=== PATIENT | male | born 1995 | race Caucasian/White ===

== ENCOUNTER 2020-07-04 14:45 | Emergency (ER) | payer MEDICAID, SELFPAY ==
[2020-07-04 14:47] VITALS: BP 109/70; PULSE 77; RESP 18; TEMP 36.9; O2SAT 100; BMI 27.3
--- NOTE | 2020-07-04 15:02 | CT_ITS ---
STUDY: CT ABDOMEN AND PELVIS WITH CONTRAST REASON FOR EXAM: Male, 25 years old. RLQ ABD PAIN AND NAUSEA STARTED TODAY. RADIATION DOSAGE (If Supplied By Facility): CTDIvol = ( 9.04 ) mGy, DLP = ( 563.11 ) mGycm TECHNIQUE: Transaxial images were obtained from the dome of the diaphragm to the symphysis pubis without oral contrast. Oral and amp;amp; IV Gastrografin and amp;amp; 100mL Isovue-300 was administered. Sagittal and coronal images were reconstructed. Individualized dose optimization techniques were used for this CT. COMPARISON: None. FINDINGS: The visualized lung bases are unremarkable. The visualized portions of the heart are within normal limits. Normal liver. Normal gallbladder and extrahepatic biliary system. Normal spleen. Normal pancreas. Normal bilateral adrenal glands. Normal right kidney. Normal left kidney. Normal visualized stomach. Normal small intestine. Increased stool throughout the colon. Oral contrast noted in the small bowel. Appendix is normal. Normal abdominal aorta. Normal inferior vena cava. Normal retroperitoneum. Normal urinary bladder. Normal abdominal wall. Normal osseous structures. CT/Abdomen/Pelvis WITH Contrast IMPRESSION: Increased stool. No acute disease. Electronically Signed: Chaz Gilliland MD at 17:17 EST , Service support ,
--- NOTE | 2020-07-04 15:03 | ED.VISSUMM ---
- ER Visit Summary Date of Service: 07/04/20 Chief Complaint: Abdominal pain History of Present Illness: The patient is a 25 M presenting with right lower quadrant abdominal pain. Patient states this started this morning. He has nausea with no vomiting. Denies diarrhea or constipation. Denies urinary complaints. Denies fever. He states he saw his primary care physician on Saturday and had an outpatient ultrasound ordered to check for hernia. He states pain is now in the right lower quadrant as opposed to the left lower quadrant when he saw his PCP. Denies other complaints. Physical Examination: Vitals are stable. Patient is afebrile. Alert no acute distress. HEENT exam is unremarkable. Neck is supple. Lungs are clear and equal bilaterally. Heart is regular rate and rhythm. Abdomen is soft right lower quadrant tenderness with no guarding or rebound Extremities are unremarkable. Skin is warm and dry. No focal neurologic deficit. Remainder of exam is unremarkable. Emergency Department Course and Treatment: Patient was given Zofran IV. CBC, chemistries unremarkable. Urinalysis unremarkable. CT abdomen pelvis is pending at this time and will be checked out to the oncoming physician. Disposition: Pending Impression: Abdominal pain This note was generated with [employer] dictation software. It may contain incorrect words, spelling, and punctuation that were not noted in review of the chart prior to signing ED Disposition - Plan for ED Patient: Referrals: Ivan Richard MD [NON-STAFF] -
[2020-07-04] MEDS: Ondansetron 4 MG/2 ML Vial IV (15:16)
[2020-07-04 15:29] LABS: Mucous, Urine 0 SEEN /hpf (<or=2+); Red Blood Cells-Urine 0 SEEN /hpf (0-5); Squamous Epithelial Cells - UA 0 SEEN /hpf (0-5); White Blood Cells 0 SEEN /hpf (0-5)
[2020-07-04 15:41] LABS: Anion Gap 7 (5-15); BUN 22 mg/dL (7-18); BUN/Creat Ratio 18.8 RATIO (10-20); Calcium,Total 9.2 mg/dL (8.5-10.1); Chloride 105 mmol/L (98-107); Creatinine, Serum 1.17 mg/dL (0.70-1.30); EST Glomerular Filtration Rate 79 mL/min (>60); Est Glom Filt Rate - Afr Amer 96 mL/min (>60); Estimated Creatinine Clearance 91.75 ml/min; Glucose 91 mg/dL (74-106); Potassium 3.5 mmol/L (3.5-5.1); Sodium Level 142 mmol/L (136-145)
[2020-07-04 15:42] LABS: Color, Urine Yellow (Yellow); Glucose, Dipstick Normal (Normal); Ketone-Dipstick Negative (Negative); Leukocyte Esterase-Dipstick Negative /ul (Negative); Nitrite-Dipstick Negative (Negative); Occult Blood-Urine Negative /ul (Negative); Protein-Dipstick Negative (Negative); Urine Bilirubin Dipstick Negative (Negative); Urine Clarity Clear (Clear); Urine Urobilinogen Normal (Normal)
[2020-07-04 15:49] LABS: Hematocrit 42.7 % (40-54); Hemoglobin 14.6 g/dL (13.0-16.5); Mean Corp Hgb Conc 34.2 g/dL (32-36); Mean Corpuscular Hgb 30.3 pg (27.0-32.0); Mean Corpuscular Volume 88.6 fL (80-94); Mean Platelet Vol. 8.9 fl (6.2-12.0); NRBC Flagged by Analyzer 0 % (0-5); Platelet Count 270 K/mm3 (150-450); RBC Distribution Width CV 11.6 % (11.6-14.6); RBC Distribution Width SD 37.4 fl (35.1-43.9); Red Blood Count 4.82 M/mm3 (4.6-6.2); White Blood Count 7.3 K/mm3 (4.4-11.0)
[2020-07-04 15:54] LABS: Absolute Lymphocyte Count 1.97 X10^3/uL (0.83-4.51); Absolute Neutrophil Count 4.6 X10^3/uL (2.0-7.7); Basophil# 0.04 X10^3/uL; Basophil% 0.6 % (0-1); Eosinophil# 0.11 X10^3/uL; Eosinophils% 1.5 % (0-5); Lymphocyte # 1.97 X10^3/ul (4.0); Lymphocyte % 27.2 % (19-41); Monocyte% 6.9 % (0-10); Neutrophil # 4.59 X10^3/uL (2.7-7.7); Neutrophil % 63.4 % (47-70)
[2020-07-04 16:06] LABS: Bacteria 1+ /hpf (None Seen)
--- NOTE | 2020-07-04 16:27 | ED.DEP ---
ED Disposition - Plan for ED Patient: Instructions: ED Unknown Causes of Abdominal Pain Male Referrals: Ivan Richard MD [NON-STAFF] -
[2020-07-04 16:51] VITALS: BP 125/72; PULSE 77; RESP 14; O2SAT 98
--- NOTE | 2020-07-04 17:23 | ED.DEP ---
ED Disposition - Plan for ED Patient: Instructions: ED Unknown Causes of Abdominal Pain Male, ED Constipation Prescriptions: Polyethylene Glycol 3350 [Miralax] 17 gm PO DAILY #10 packet Prescription Printed Referrals: Ivan Richard MD [NON-STAFF] -
[2020-07-04 17:45] VITALS: BP 107/72; PULSE 75; RESP 18; O2SAT 98
--- NOTE | 2020-07-04 17:46 | ED.RN ---
PT EDUCATED ON WRITTEN AND VERBAL DISCHARGE INSTRUCTIONS AND HOME GOING INSTRUCTIONS. PT VERBALIZES UNDERSTANDING AND DENIES ANY FURTHER QUESTIONS. IV D/C AND COVERED WITH X2 GAUZE AND PAPER TAPE. PT DRESSES SELF AND AMBULATES OUT OF DEPT ALONE.
== END 2020-07-04 17:47 | disposition home or self-care (01) ==
LOC: ED 15:11
PROVIDERS: Emergency Provider Emergency Medicine; PCP Family Medicine
DX: R10.31 Right lower quadrant pain (principal); R11.0 Nausea
CPT/HCPCS: 74177; 80048; 81001; 85025; 96374; 99283; Q9967; A4216; J2405

== ENCOUNTER 2020-08-29 12:26 | Emergency (ER) | payer MEDICAID, SELFPAY ==
[2020-08-29 12:27] VITALS: BP 114/79; PULSE 63; RESP 15; TEMP 36.2; O2SAT 100; BMI 26.6
--- NOTE | 2020-08-29 12:47 | EKG12_ITS ---
Test Reason : CP Blood Pressure : / mmHG Vent. Rate : 068 BPM Atrial Rate : 068 BPM P-R Int : 162 ms QRS Dur : 096 ms QT Int : 406 ms P-R-T Axes : 062 062 039 degrees QTc Int : 431 ms Normal sinus rhythm with sinus arrhythmia Normal ECG Confirmed by ALEX DEGROOT, SRIKANTH ([id number]), editor city KENDAL KLEIN ([id number]) on 09/05/2020 9:12:15 AM Referred By: PAUL Confirmed By:EVAN JOHNSON MD
--- NOTE | 2020-08-29 13:04 | NURSING ---
NO OLD EKGS
--- NOTE | 2020-08-29 13:11 | RAD_ITS ---
STUDY: X-RAY CHEST REASON FOR EXAM: Male, 25 years old. Pt. states he has had CP on and off for 2 1/2 months, getting worse TECHNIQUE: Frontal and lateral views of the chest. COMPARISON: None. FINDINGS: The lungs are clear and expanded. There is no demonstrated pleural abnormality. Normal size heart. Normal mediastinum and filipe. Normal visualized pulmonary arteries. Normal visualized aortic arch and descending thoracic aorta. Normal visualized thoracic spine. Normal visualized ribs, clavicles, and shoulders. There is no demonstrated abnormality of the visualized soft tissue structures of the upper abdomen. RAD/Chest PA and Lateral IMPRESSION: Normal x-ray examination of the chest. Electronically Signed: Shun Diop, at 13:39 EST Tel , Service support ,
[2020-08-29 13:12] LABS: Absolute Lymphocyte Count 1.61 X10^3/uL (0.83-4.51); Absolute Neutrophil Count 3.5 X10^3/uL (2.0-7.7); Basophil# 0.03 X10^3/uL; Basophil% 0.5 % (0-1); Eosinophil# 0.07 X10^3/uL; Eosinophils% 1.2 % (0-5); Hematocrit 40.7 % (40-54); Hemoglobin 13.7 g/dL (13.0-16.5); Lymphocyte # 1.61 X10^3/ul (4.0); Lymphocyte % 28.5 % (19-41); Mean Corp Hgb Conc 33.7 g/dL (32-36); Mean Corpuscular Hgb 29.6 pg (27.0-32.0); Mean Corpuscular Volume 87.9 fL (80-94); Mean Platelet Vol. 8.5 fl (6.2-12.0); Monocyte# 0.46 X10^3/uL; Monocyte% 8.1 % (0-10); NRBC Flagged by Analyzer 0 % (0-5); Neutrophil # 3.46 X10^3/uL (2.7-7.7); Neutrophil % 61.3 % (47-70); Platelet Count 244 K/mm3 (150-450); RBC Distribution Width CV 11.9 % (11.6-14.6); Red Blood Count 4.63 M/mm3 (4.6-6.2); White Blood Count 5.7 K/mm3 (4.4-11.0)
--- NOTE | 2020-08-29 13:15 | ED.VIS.GEN ---
History of Present Illness Chief Complaint: Chest Pain Informant: Patient Onset: Month(s) Timing: Intermittent Current Severity: - - Resolved Maximum Severity: Mild Narrative: Patient presents secondary to upper chest pain. He states for the past 2-1/2 months he has had intermittent episodes of upper chest pain associated with lightheadedness and nausea. He states he will occasionally have some difficulty swallowing during these episodes. He states episodes will typically last at least 30 minutes and will spontaneously resolve. This morning the pain started going into the left upper chest which prompted him to call his doctor and they referred him to the emergency room. Past Medical History - Allergies and Home Meds Allergies/Adverse Reactions: Allergies No Known Allergies Allergy (Verified 08/29/20 12:26) Primary Care Physician: Berto Kelly MD [Primary Care Provider] - Prior records reviewed: Yes Smoking Status: Unknown if ever smoked Review of Systems General: Denies: Chills, Fever Eyes: Denies: Visual changes - bilaterally ENT: Denies: Bilateral ear pain Cardiovascular: Reports: Chest pain Respiratory: Denies: Dyspnea, Cough Gastrointestinal: Denies: Abdominal pain, Vomiting, Diarrhea Genitourinary: Denies: Dysuria Musculoskeletal: Denies: Swelling, Extremity Pain Skin: Denies: Rash Neurological: Denies: Headache Hematologic: Denies: Easy bruising, Easy bleeding Allergy: Denies: Uticaria Physical Exam Vital Signs/Narrative: Vital Signs Temp Pulse Resp BP Pulse Ox 08/29/20 12:27 97.2 F L 63 15 114/79 100 Inital Vital Signs reviewed: Yes General: Well nourished, Well developed Head: Normocephalic ENT: Moist mucous membranes Neck: Supple Cardiovascular: Regular rate, Regular rhythm Respiratory: No distress, CTA bilaterally, Chest nontender Abdomen: Soft, Nontender Extremities: Nontender Skin: Normal color Neurological: Alert, Oriented x3 Psychological: Normal affect Diagnostic/Tx/Re-eval Chest X-Ray - ED: 2 View, Read by ED Physician, Normal, Heart, Lungs, Mediastinum - EKG Initial EKG Interpretation: Sinus Rhythm - Sinus at 68 with no acute ischemia. - Medical Decision Making Patient was observed on equipment monitor phototypesetting throughout his ED stay. No significant arrhythmias noted. 2 view chest x-ray per my review reveals no acute findings. Radiologist interpretation is also reviewed. Blood work is unremarkable including negative D-dimer, troponin, and TSH. Test results are discussed with the patient. Patient is concerned that this may be secondary to anxiety. He has had multiple deaths in his family over the last 3 months that he has been taking hard. He will be given a short course of Ativan to see if that helps the episodes. He will follow-up with his PCP. ED Disposition - Plan for ED Patient: Disposition: Home or Assisted Living Diagnosis: Atypical chest pain, Anxiety Instructions: ED Chest Pain, Noncardiac, ED Anxiety Reaction Prescriptions: Lorazepam [Ativan] 0.5 mg PO BID PRN PRN #10 tablet PRN Reason: Anxiety Transmission Status: Received by [facility]/pharmacy #[id number] Referrals: Berto Kelly MD [Primary Care Provider] - 1-2 Weeks
[2020-08-29 13:25] LABS: D-Dimer Quantitative (DVT/PE) <= 0.27 FEU/ug/m (0.27-0.49)
[2020-08-29 13:36] LABS: Anion Gap 4 (5-15); BUN 18 mg/dL (7-18); BUN/Creat Ratio 16.8 RATIO (10-20); Calcium,Total 9.3 mg/dL (8.5-10.1); Chloride 108 mmol/L (98-107); Creatinine, Serum 1.07 mg/dL (0.70-1.30); EST Glomerular Filtration Rate 88 mL/min (>60); Est Glom Filt Rate - Afr Amer 106 mL/min (>60); Estimated Creatinine Clearance 100.33 ml/min; Glucose 101 mg/dL (74-106); Potassium 3.6 mmol/L (3.5-5.1); Sodium Level 141 mmol/L (136-145); Thyroid Stim Hormone (TSH) 1.31 uIU/mL (0.358-3.74)
[2020-08-29 14:31] VITALS: PULSE 69; RESP 18; O2SAT 98
== END 2020-08-29 14:35 | disposition home or self-care (01) ==
PROVIDERS: Emergency Provider Emergency Medicine; PCP Family Medicine
DX: R07.89 Other chest pain (principal); F41.9 Anxiety disorder, unspecified
CPT/HCPCS: 71046; 80048; 84443; 84484; 85025; 85379; 93005; 99283; A4216